=== PATIENT | male | born 1975 | race African-American/Black ===

== ENCOUNTER 2021-06-28 09:34 | Outpatient (CLI) | payer BC ==
--- NOTE | 2021-06-28 11:20 | XRAY Report ---
PROCEDURE: Shoulder 2 View RT INDICATIONS: NUMBNESS TECHNIQUE: 2 views of the shoulder were acquired. COMPARISON: None. FINDINGS: Bones: No fractures or dislocations. There is moderate acromioclavicular joint osteoarthritis and sl ight inferior subluxation of acromion in relation to distal clavicle. No suspicious bony lesions. Vi sualized ribs appear intact. Soft tissues: No suspicious soft tissue calcifications. IMPRESSION: Moderate acromioclavicular joint osteoarthritis. Inferior subluxation at acromioclavicul ar joint as above suggestive of low to moderate grade AC separation. No fracture or dislocation. Reviewed by: Alvaro Franco MD on 06/28/2021 11:19 AM PDT Approved by: Alvaro Franco MD on 06/28/2021 11:19 AM PDT Station ID: [id number]
== END 2021-06-28 09:35 | disposition home or self-care (01) ==
LOC: DI.N 09:34
PROVIDERS: ATTEND Nurse Practitioner
DX: R20.0 Anesthesia of skin (principal); M19.011 Primary osteoarthritis, right shoulder; R93.6 Abnormal findings on diagnostic imaging of limbs